=== PATIENT | male | born 1990 | race Caucasian/White ===

== ENCOUNTER 2017-09-19 13:33 | Emergency (ER) | payer MEDICAID ==
[~2017-09-19] VITALS: Ht 177.8 cm; Wt 92.0 kg
[2017-09-19 13:37] VITALS: BP 135/86
== END 2017-09-19 14:56 | disposition home or self-care (01) ==
LOC: ED 14:43
DX: H65.01 Acute serous otitis media, right ear (principal); H81.391 Other peripheral vertigo, right ear; F17.200 Nicotine dependence, unspecified, uncomplicated
CPT/HCPCS: 99283